=== PATIENT | male | born 1980 | race Caucasian/White ===

== ENCOUNTER 2017-12-01 08:42 | Emergency (ER) | payer OTHER ==
--- NOTE | 2017-12-01 09:19 | EDM.PDOC ---
ED HPI GENERAL MEDICAL PROBLEM - General Chief Complaint: Chest Pain Stated Complaint: UPPER LT ABDOMINAL PAIN Time Seen by Provider: 12/01/17 09:09 Source of Information: Reports: Patient History Limitations: Reports: No Limitations - History of Present Illness INITIAL COMMENTS - FREE TEXT/NARRATIVE: 37-year-old male presents to the ED with acute onset of left upper quadrant dull pain and left lower anterior chest pain. Is able to localize the pain very well to his lower chest wall. He continually holds his left lower chest wall over ribs 5 and 6. Aware that it hurts worse to breathe it hurts worse to move hurts to cough. Denies fever or chills. Denies feeling short of breath although he is splinting respirations on the left side. States pain is much worse with deep breathing. And had low back surgery L4-L5 discectomy on November 03. States he has been highly mobile since the time of surgery. He is no longer taking narcotic pain medication and only taking Naprosyn for pain relief. States his back pain is coming along very well. No recent left chest wall trauma to his knowledge. Pain tends to come and go a strong colicky component to the pain. He states at times can be as much is 10 out of 10 but otherwise is 6 or 7 out of 10. Pain does not radiate through to his back. He states he went to bed with pain and awoke around 0400 hrs. with an acute worsening of the pain and it really hasn't let up since. Onset: Sudden Onset Date: 11/30/17 (Pain started last evening before going to bed.) Duration: Hour(s): Location: Reports: Chest, Abdomen (Left lower anterior chest left upper quadrant of the abdomen.). Denies: Radiates to Quality: Reports: Ache, Sharp, Stabbing (Feels like he is being stabbed at times.) Severity: Moderate (6 or 7 out of 10 but at times does get up to a 10 on a 10 suggesting a colicky component to the pain or spastic pain.) Improves with: Reports: Rest Worsens with: Reports: Movement Context: Denies: Activity (Movement deep breathing makes the pain worse.), Exercise, Lifting, Sick Contact, Trauma, Other Associated Symptoms: Reports: Chest Pain, Shortness of Breath. 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.) Left Lower Chest Pain Score (Numeric/FACES): 8 - Related Data Allergies Allergy/AdvReac Type Severity Reaction Status Date / Time No Known Allergies Allergy Verified 12/01/17 08:56 Home Meds: Home Meds Diclofenac Sodium [Voltaren] 50 mg PO TID #24 tab.ec 12/01/17 [Rx] Naproxen [Naprosyn] 500 mg PO Q6HR 12/01/17 [History] oxyCODONE HCl/Acetaminophen [Percocet 5-325 mg Tablet] 1 - 2 each PO Q4H PRN # 16 tablet 12/01/17 [Rx] Past Medical History - Past Health History Medical/Surgical History: Denies Medical/Surgical History Musculoskeletal History: Reports: Back Pain, Chronic (Underwent L4-L5 discectomy November 03 of this year with marked improvement in his low back pain. No back to work yet.) Social & Family History - Living Situation & Occupation Living situation: Reports: Occupation: Unemployed (Currently off due to recent back surgery.) ED ROS GENERAL - Review of Systems Review Of Systems: See Below Constitutional: Denies: Fever, Chills, Malaise, Weakness, Fatigue, Night Sweats , Diaphoresis, Decreased Appetite HEENT: Reports: No Symptoms Respiratory: Reports: Shortness of Breath (Has pain left anterior lower chest). Denies: Wheezing ( is worsened by deep breathing started last night before bed ), Pleuritic Chest Pain, Cough, Sputum, Hemoptysis Cardiovascular: Reports: Chest Pain (Blood pressure is elevated at this time 1 [id number]. Left lower anterior chest pain which is able to localize quite well to ribs 5 and 6.). Denies: Blood Pressure Problem, Dyspnea on Exertion, Edema, Lightheadedness, Orthopnea Endocrine: Reports: No Symptoms GI/Abdominal: Reports: Abdominal Pain (Left upper quadrant abdominal pain feels like it's up underneath his ribs.). Denies: Constipation, Diarrhea, Flatus, Hematemesis, Hematochezia, Melena, Nausea, Stool Incontinence, Vomiting : Reports: No Symptoms Musculoskeletal: Reports: Back Pain (Recovering from L3 L4 discectomy) Skin: Reports: No Symptoms ( done November 03.) Neurological: Reports: No Symptoms Psychiatric: Reports: No Symptoms Hematologic/Lymphatic: Reports: No Symptoms Immunologic: Reports: No Symptoms ED EXAM, GENERAL - Physical Exam Exam: See Below Exam Limited By: No Limitations General Appearance: Alert, WD/WN, Moderate Distress (Appears to be in significant discomfort. Continues likely holds onto his left lower anterior chest due to pain.) Eye Exam: Bilateral Eye: Normal Inspection Respiratory/Chest: No Respiratory Distress, Lungs Clear, Normal Breath Sounds, Other (Does have chest wall tenderness particularly ribs 345 and 6 midclavicular line. Fourth and fifth ribs seem to be the most tender.). No: Rhonchi, Wheezing Cardiovascular: Normal Peripheral Pulses, Regular Rate, Rhythm, No Edema, No Murmur GI/Abdominal: Soft, No Organomegaly, No Mass, Pelvis Stable, Tender (Tenderness left upper quadrant of the abdomen), Abnormal Bowel Sounds (Brandin bowel sounds.), Other. No: Guarding, Rigid ( along the costal margin. No rebound tenderness peritonitis or guarding.), Rebound Back Exam: Normal Inspection, Full Range of Motion. No: CVA Tenderness (L), CVA Tenderness (R) Extremities: Normal Inspection, Normal Range of Motion, Non-Tender, No Pedal Edema, Other Neurological: Alert (Examination both lower extremities show no clinical evidence of DVT.), Oriented, CN II-XII Intact, Normal Cognition Psychiatric: Normal Affect Skin Exam: Warm, Dry, Intact, Normal Color, No Rash Course - Vital Signs Last Recorded V/S: Last Vital Signs Temp 36.9 C 12/01/17 08:51 Pulse 80 12/01/17 08:51 Resp 18 12/01/17 08:51 BP 154/92 H 12/01/17 08:51 Pulse Ox 96 12/01/17 08:51 - Orders/Labs/Meds Orders: Active Orders 24 hr Category Date Time Status Abdomen 1V Flat [CR] Stat Exams 12/01/17 09:20 Taken Chest 1V Frontal [CR] Stat Exams 12/01/17 09:19 Taken Dextrose 5%-0.9% NaCl [Dextrose 5%-Normal Saline] 1,000 Med 12/01/17 09:30 Active ml IV ASDIRECTED Ketorolac [Toradol] Med 12/01/17 09:30 Active 30 mg IVPUSH ONETIME Medication Orders Dextrose/Sodium Chloride (Dextrose 5%-Normal Saline) 1,000 mls @ 150 mls/hr IV ASDIRECTED LARISSA Last Admin: 12/01/17 09:38 Dose: 150 mls/hr Ketorolac Tromethamine (Toradol) 30 mg IVPUSH ONETIME LARISSA Last Admin: 12/01/17 09:38 Dose: 30 mg Labs: Laboratory Tests 12/01/17 12/01/17 12/01/17 Range/Units 09:39 09:39 09:39 WBC 7.36 (4.23-9.07) K/mm3 RBC 4.66 (4.63-6.08) M/mm3 Hgb 15.1 (13.7-17.5) gm/L Hct 43.2 (40.1-51.0) % MCV 92.7 H (79.0-92.2) fl MCH 32.4 H (25.7-32.2) pg MCHC 35.0 (32.2-35.5) g/dl RDW Std Deviation 44.3 H (35.1-43.9) fL Plt Count 167 (163-337) K/mm3 MPV 10.5 (9.4-12.3) fl Neutrophils % (Manual) 57 (40-60) % Band Neutrophils % 0 (0-10) % Lymphocytes % (Manual) 39 (20-40) % Atypical Lymphs % 0 % Monocytes % (Manual) 4 (2-10) % Eosinophils % (Manual) 0 L (0.8-7.0) % Basophils % (Manual) 0 L (0.2-1.2) Platelet Estimate Adequate RBC Morph Comment Normal D-Dimer, Quantitative 0.34 (0.19-0.50) mg/L Sodium 136 (136-145) mEq/L Potassium 4.2 (3.5-5.1) mEq/L Chloride 103 (98-107) mEq/L Carbon Dioxide 24 (21-32) mEq/L Anion Gap 13.2 (5-15) BUN 13 (7-18) mg/dL Creatinine 0.8 (0.7-1.3) mg/dL Est Cr Clr Drug Dosing 131.81 mL/min Estimated GFR (MDRD) > 60 (>60) mL/min BUN/Creatinine Ratio 16.3 (14-18) Glucose 105 (74-106) mg/dL Calcium 9.1 (8.5-10.1) mg/dL Total Bilirubin 0.4 (0.2-1.0) mg/dL AST TNP ALT TNP Alkaline Phosphatase 59 (46-116) U/L C-Reactive Protein 0.5 (<1.0) mg/dL Total Protein 8.3 H (6.4-8.2) g/dl Albumin 4.4 (3.4-5.0) g/dl Globulin 3.9 gm/dL Albumin/Globulin Ratio 1.1 (1-2) Meds: Medications Generic Name Dose Route Start Last Admin Trade Name Freq PRN Reason Stop Dose Admin Dextrose/Sodium Chloride 1,000 mls @ 150 mls/hr 12/01/17 09:30 12/01/17 09:38 Dextrose 5%-Normal Saline IV 150 mls/hr ASDIRECTED LARISSA Administration Ketorolac Tromethamine 30 mg 12/01/17 09:30 12/01/17 09:38 Toradol IVPUSH 30 mg ONETIME LARISSA Administration Discontinued Medications Generic Name Dose Route Start Last Admin Trade Name Freq PRN Reason Stop Dose Admin Hydromorphone HCl 0.5 mg 12/01/17 09:21 12/01/17 09:38 Dilaudid IVPUSH 12/01/17 09:22 0.5 mg ONETIME ONE Administration Ondansetron HCl 4 mg 12/01/17 09:21 12/01/17 09:38 Zofran IVPUSH 12/01/17 09:22 4 mg ONETIME ONE Administration - Radiology Interpretation Free Text/Narrative:: 37-year-old male presents to the ED with diffuse left lower anterior chest wall pain guarded last evening before going to bed. He awoke about 4:00 this morning with worsening of this pain. Appreciates pain in the left upper quadrant of the abdomen that seems to radiate up underneath his left chest wall. This difficult painful to take a full deep breath and he has splinting respirations on exam. He is afebrile. O2 sats are 97% on room air with respiratory to 16-18/m. Should lumbar spine surgery places him at some degree of risk of DVT. This is no clinical leg evident. Clinically appears to have chest wall pain on palpation. Plan IV D5 normal saline at 150 mils per hour. Given Toradol 30 mg IV for pain relief with Dilaudid 0.5 mg and Zofran 4 mg IV. Routine labs to be collected to include a CRP and a d-dimer. - Re-Assessments/Exams Free Text/Narrative Re-Assessment/Exam: 12/01/17 10:04 chest x-ray done portable is completely normal. Normal cardiac silhouette. Lungs are clear with no pneumothorax or infiltrates. KUB reveals increased stool throughout the splenic flexure increased gas in the transverse colon increased stool in the splenic flexure colon. The colon does arise quite high in the abdomen on the left side up underneath his left hemidiaphragm. 12/01/17 10:35 Labs are back. Total white count is 7.36 with a normal differential 57% neutrophils no bands reported. Hemoglobin is 15.1 with hematocrit of 43.2. MCV is slightly elevated at 92.7. Platelet count normal 167, 000. D-dimer is normal at 0.34. Sodium 136 with a potassium of 4.2. Chloride 103 with a bicarbonate 24. And a gap is 13.2. BUN is 13 with a creatinine of 0.8. GFR is greater than 60. Glucose 105. Calcium 9.1. Liver function normal. C- reactive protein is 0.5. Total protein slightly elevated at 8.3. Normal at 4.4. Labs therefore normal. Pain appears to be chest wall in origin. He is feeling improved pain is still present but mild compared to what it was like. Going to place him on Percocet tabs 5/3/25 milligrams strength one or 2 every 4-6 hours as needed for pain relief. Also we will discontinue his Naprosyn for the next 8 days and use Voltaren 50 mg 3 times daily for the next 8 days as an anti- inflammatory agent. He is for follow-up with his personal care physician if not markedly improved in 5 days time Departure - Departure Time of Disposition: 10:41 Disposition: Home, Self-Care 01 Condition: Fair Clinical Impression: Acute chest wall pain - Discharge Information *PRESCRIPTION DRUG MONITORING PROGRAM REVIEWED*: Not Applicable *COPY OF PRESCRIPTION DRUG MONITORING REPORT IN PATIENT SIRISHA: Not Applicable Prescriptions: Diclofenac Sodium [Voltaren] 50 mg PO TID #24 tab.ec oxyCODONE HCl/Acetaminophen [Percocet 5-325 mg Tablet] 1 - 2 each PO Q4H PRN # 16 tablet PRN Reason: pain relief. Referrals: Mabel Carlson PA-C [Primary Care Provider] - Forms: ED Department Discharge Additional Instructions: Evaluation the emergency room today in regards to development of significant left lower anterior chest wall pain in the last 24 hours. Ribs 5 and 6 are particularly very tender to palpation on examination with no known injuries to this area. Recent back surgery and not being quite as active as normal a laboratory workup was carried out with no positive findings. In particular there is no evidence of any blood clots in your lung. The abdomen does show some increased stool in the right hemicolon and left upper: Up underneath her left hemidiaphragm. Suggest taking some MiraLAX powder 17 g or 1 scoop daily for the next 5-7 days to make sure your bowels clear out. At this time treatment is basically pain management as a believe there is a viral infection involving the lining of your ribs left anterior chest wall. Suggest use of Voltaren 50 mg 3 times daily for the next 8 days. Stop her Naprosyn while on Voltaren. May resume the Naprosyn afterwards. Percocet tabs 5/3/25 milligrams strength one or 2 every 4-6 hours needed for pain not controlled by Voltaren alone. Note the Voltaren by itself will usually take a day and a half to start to work well. Personal care physician if not markedly improved. Will back to normal in 5 days time - My Orders Last 24 Hours: My Active Orders 12/01/17 09:19 Chest 1V Frontal [CR] Stat 12/01/17 09:20 Abdomen 1V Flat [CR] Stat 12/01/17 09:30 Dextrose 5%-0.9% NaCl [Dextrose 5%-Normal Saline] 1,000 ml IV ASDIRECTED Ketorolac [Toradol] 30 mg IVPUSH ONETIME - Assessment/Plan Last 24 Hours: My Active Orders 12/01/17 09:19 Chest 1V Frontal [CR] Stat 12/01/17 09:20 Abdomen 1V Flat [CR] Stat 12/01/17 09:30 Dextrose 5%-0.9% NaCl [Dextrose 5%-Normal Saline] 1,000 ml IV ASDIRECTED Ketorolac [Toradol] 30 mg IVPUSH ONETIME
[2017-12-01] MEDS ORDERED: HYDROmorphone 0.5 MG/0.5 ML SYRINGE IVPUSH ONE (09:21)
[2017-12-01] MEDS ORDERED: Ondansetron 4 MG/2 ML SDV IVPUSH ONE (09:21)
[2017-12-01] MEDS ORDERED: Ketorolac 30 MG/ML SDV IVPUSH SCH (09:30)
[2017-12-01] MEDS ORDERED: Dextrose 5%-0.9% NaCl 1,000 ML IV SCH (09:30)
[2017-12-01 10:55] VITALS: BP 133/78
--- NOTE | 2017-12-01 14:09 | CR ---
Chest: Frontal view of the chest was obtained in PA projection. Comparison: No prior chest x-ray. Heart size and mediastinum are normal. Lungs are clear. Bony structures are grossly intact. Impression: 1. Nothing acute is seen on PA chest x-ray. Diagnostic code #1
--- NOTE | 2017-12-01 14:09 | CR ---
Abdomen: Supine view of the abdomen was obtained. Comparison: No previous abdominal x-ray. Bowel gas pattern appears normal. No abnormal calcifications or soft tissue abnormality is seen. Bony structures are unremarkable. Joint space narrowing is seen within both superior hips. No additional abnormality is seen. Impression: 1. Joint space narrowing within both superior hips. 2. Supine abdominal x-ray is otherwise unremarkable. Diagnostic code #2
== END 2017-12-01 11:01 | disposition home or self-care (01) ==
LOC: JD.ED 08:42
DX: R07.89 Other chest pain (principal)
CPT/HCPCS: 36415; 71045; 74018; 80053; 85007; 85027; 85379; 86140; 96361; 96374; 96375; 99284; J1170; J1885; J2405; J7042

== ENCOUNTER 2019-03-16 22:00 | Emergency (ER) | payer BC ==
[2019-03-16] MEDS ORDERED: HYDROmorphone 0.5 MG/0.5 ML Syringe IM ONE (22:26)
[2019-03-16] MEDS ORDERED: Tamsulosin 0.4 MG Cap.ER PO ONE (22:26)
[2019-03-16 22:27] VITALS: BP 161/100; PULSE 73
--- NOTE | 2019-03-16 22:31 | EDM.PDOC ---
ED HPI GENERAL MEDICAL PROBLEM - General Chief Complaint: Flank Pain Stated Complaint: RIGHT SIDE PAIN/BLOOD IN URINE Time Seen by Provider: 03/16/19 22:23 Source of Information: Reports: Patient, RN Notes Reviewed History Limitations: Reports: No Limitations - History of Present Illness INITIAL COMMENTS - FREE TEXT/NARRATIVE: Patient is a 38-year-old male who presents to the ED for the evaluation of right flank pain and blood in his urine. Patient notes that he did have some right sided pain roughly 3 to 4 days ago, this got better for a short period of time, but then today it got worse again. He notes he has had hot and cold flashes with the pain. And he did notice some blood in his urine today as well. He does deny a history of kidney stones however. He did not take any sort of medications for pain at home. He denies any discharge from the penis. He states that he is and has a monogamous relationship. Notes that the pain does come and go in waves, and that he cannot really find a spot that is more comfortable than the other. Right Flank Pain Score (Numeric/FACES): 6 - Related Data Allergies Allergy/AdvReac Type Severity Reaction Status Date / Time No Known Allergies Allergy Verified 03/16/19 22:28 Home Meds: Home Meds Acetaminophen/oxyCODONE [Percocet 325-5 MG] 1 each PO Q6H PRN #12 tab 03/16/19 [ Rx] Past Medical History Musculoskeletal History: Reports: Back Pain, Chronic (Underwent L4-L5 discectomy November 03 of this year with marked improvement in his low back pain. No back to work yet.) Social & Family History - Sexual History Sexual History: Reports: Sexually Active - Living Situation & Occupation Living situation: Reports: Occupation: Unemployed (Currently off due to recent back surgery.) ED ROS GENERAL - Review of Systems Review Of Systems: See Below Constitutional: Denies: Fever, Chills Respiratory: Denies: Shortness of Breath Cardiovascular: Denies: Chest Pain GI/Abdominal: Denies: Constipation, Diarrhea, Nausea, Vomiting : Reports: Flank Pain (R flank), Hematuria. Denies: Dysuria, Frequency, Urgency Musculoskeletal: Denies: Back Pain ED EXAM, RENAL/ - Physical Exam Exam: See Below Exam Limited By: No Limitations General Appearance: Alert, WD/WN, No Apparent Distress (pt is walking around the ED room, trying to find a comfortable position.) Ears: Normal External Exam Nose: Normal Inspection Throat/Mouth: Normal Inspection, Normal Lips, Normal Teeth, Normal Gums, Normal Oropharynx, Normal Voice, No Airway Compromise Head: Atraumatic, Normocephalic Neck: Normal Inspection Respiratory/Chest: No Respiratory Distress, Lungs Clear, Normal Breath Sounds, No Accessory Muscle Use, Chest Non-Tender Cardiovascular: Normal Peripheral Pulses, Regular Rate, Rhythm, No Edema, No Murmur GI/Abdominal: Normal Bowel Sounds, Soft, Non-Tender, No Distention, No Mass (Male) Exam: Deferred Back Exam: No: CVA Tenderness (L), CVA Tenderness (R) Extremities: Normal Inspection, Normal Capillary Refill Neurological: Alert, Oriented, No Motor/Sensory Deficits Psychiatric: Normal Affect, Normal Mood Skin Exam: Warm, Dry, Intact, Normal Color, No Rash Course - Vital Signs Last Recorded V/S: Last Vital Signs Temp 97.8 F 03/16/19 22:24 Pulse 73 03/16/19 22:24 Resp 16 03/16/19 22:24 BP 161/100 H 03/16/19 22:24 Pulse Ox 97 03/16/19 22:24 - Orders/Labs/Meds Orders: Active Orders 24 hr Category Date Time Status Strain Urine [RC] ASDIRECTED Care 03/16/19 23:11 Active Labs: Laboratory Tests 03/16/19 Range/Units 23:20 Urine Color Dark yellow (Yellow) Urine Appearance Turbid H (Clear) Urine pH 6.0 (5.0-8.0) Ur Specific [place] > or = 1.030 (1.005-1.030) Urine Protein 3+ H (Negative) Urine Glucose (UA) Negative (Negative) Urine Ketones Negative (Negative) Urine Occult Blood 3+ H (Negative) Urine Nitrite Negative (Negative) Urine Bilirubin 1+ H (Negative) Urine Urobilinogen 0.2 (0.2-1.0) Ur Leukocyte Esterase Negative (Negative) Urine RBC Too numerous to cnt H (0-5) /hpf Urine WBC 0-5 (0-5) /hpf Ur Epithelial Cells 0-5 (0-5) /hpf Urine Bacteria Not seen (FEW) /hpf Urine Mucus Few (FEW) /hpf Meds: Medications Discontinued Medications Generic Name Dose Route Start Last Admin Trade Name Freq PRN Reason Stop Dose Admin Hydromorphone HCl 0.5 mg 03/16/19 22:26 03/16/19 22:32 Dilaudid IM 03/16/19 22:27 0.5 mg ONETIME ONE Administration Oxycodone/Acetaminophen 2 tab 03/16/19 23:14 03/17/19 00:07 Percocet 325-5 Mg PO 03/16/19 23:15 2 tab ONETIME ONE Administration Tamsulosin HCl 0.4 mg 03/16/19 22:26 03/16/19 22:32 Flomax PO 03/16/19 22:27 0.4 mg ONETIME ONE Administration - Re-Assessments/Exams Free Text/Narrative Re-Assessment/Exam: 03/16/19 22:31 Patient presents to the ED for evaluation of right flank pain with hematuria. Did order UA to be obtained for analysis, abdomen pelvis CT without contrast, 0.5 mg IM Dilaudid, and 0.4 mg p.o. Flomax for initial evaluation. Patient clinical course is very suspicious for a kidney stone in nature. 03/16/19 23:08 CT is done, and demonstrates a possible kidney stone right at the right UVJ. Patient has not been able to provide much urine for sample, however bedside dipstick was done, and is positive for gross hematuria, does not appear to be any infection present. This was reviewed by Dr. Armstrong as well. Patient is trying to provide more urine for a sample to be evaluated by lab daisha corbett. 03/16/19 23:30 CT report demonstrates a 5 mm stone at the right UVJ of the right kidney, with hydronephrosis and the hydroureter. UA demonstrated a gross amount of blood in the urine as reported on bedside dipstick. There was no infection however. Departure - Departure Time of Disposition: 23:10 Disposition: Home, Self-Care 01 Condition: Fair Clinical Impression: Kidney stone on right side - Discharge Information *PRESCRIPTION DRUG MONITORING PROGRAM REVIEWED*: Yes *COPY OF PRESCRIPTION DRUG MONITORING REPORT IN PATIENT SIRISHA: No Prescriptions: Acetaminophen/oxyCODONE [Percocet 325-5 MG] 1 each PO Q6H PRN #12 tab PRN Reason: Pain Instructions: Low-Purine Eating Plan, Kidney Stones, [id number] Referrals: PCP,None [Primary Care Provider] - Forms: ED Department Discharge Additional Instructions: You were evaluated in the ER today for your right flank pain. Your urinalysis did demonstrate some blood in urine, which is suggestive of a kidney stone at this time. A CT was done at this ER visit, this demonstrated a kidney stone at the right UVJ (just at entrance of bladder). You have been given a strainer, please use every time you use the bathroom to make sure that the kidney stone has passed. Recommend that you increase your oral fluid intake to try to help the stone pass. You have been given a few tablets of pain medication, please take as prescribed. These medications are highly addictive, please take as few as you need to. If your pain is not much better in a few days' time, you may need to follow up with your primary care physician, for a possible urology referral. Please return to the ED if your symptoms change or worsen. Sepsis Event Note - Focused Exam Date Exam was Performed: 03/17/19 Time Exam was Performed: 11:02 - My Orders Last 24 Hours: My Active Orders 03/16/19 23:11 Strain Urine [RC] ASDIRECTED - Assessment/Plan Last 24 Hours: My Active Orders 03/16/19 23:11 Strain Urine [RC] ASDIRECTED
[2019-03-16] MEDS ORDERED: Acetaminophen/oxyCODONE 325-5 MG Tab PO ONE (23:14)
--- NOTE | 2019-03-17 07:24 | CT ---
CT abdomen and pelvis Technique: Multiple axial sections were obtained from above the dome of the diaphragm inferiorly through the pubic symphysis. Intravenous and oral contrast not utilized. Study has been performed as a ureteral stone protocol. Comparison: No prior CT abdomen or pelvis exam. Findings: 5.8 mm obstructing stone identified within the distal right ureter at the UVJ. This causes mild proximal hydronephrosis. No other abnormal calcifications are seen along the course of the ureters. Kidneys show no abnormal calcifications. Other findings: Visualized lung bases show nothing acute. Fatty infiltration noted within the liver. Spleen appears within normal limits. Adrenal glands show no nodule. Pancreas is within normal limits. Aorta shows no aneurysm. Gallbladder is contracted but shows no calcified gallstones. Aorta shows no aneurysm. No retroperitoneal adenopathy or mesenteric abnormalities are seen. No pelvic mass or adenopathy is noted. Appendix is seen and is normal in size. Bone window settings were reviewed. Disc space narrowing noted at L4-L5 and L5-S1. Vacuum phenomena noted at L5-S1. Degenerative apophyseal change is also noted within the lower lumbar spine. Impression: 1. 5.8 mm obstructing stone within the distal right ureter causing proximal hydronephrosis. 2. Fatty infiltration within the liver. Other findings believed to be incidental as noted above. Diagnostic code #3 This report was dictated in [place] Standard Time I agree with preliminary report from [facility], finalized on 03/17/19, 1:18 AM Central Time
== END 2019-03-17 00:12 | disposition home or self-care (01) ==
LOC: JD.ED 22:00
DX: N13.2 Hydronephrosis with renal and ureteral calculous obstruction (principal)
CPT/HCPCS: 74176; 81001; 96372; 99284; A9270; J1170; 99283